=== PATIENT | female | born 1960 | race Caucasian/White ===

== ENCOUNTER 2019-07-16 14:09 | Emergency (ER) | payer OTHER, SELFPAY ==
[2019-07-16 14:32] VITALS: BP 161/91; PULSE 92; RESP 18; TEMP 37.3; O2SAT 98
--- NOTE | 2019-07-16 14:50 | ED.EYEPROB ---
HPI - Eye Problem General Chief complaint: Eye Problems Stated complaint: left eye Time Seen by Provider: 07/16/19 14:50 Source: patient and RN notes reviewed History of Present Illness HPI Narrative: Patient is a 59-year-old female presents the urgent care with complaints of left eye swelling and itchiness. Patient states that it started last night and she thought that she may have itched it or may be a nap got on her eyelid. Patient states she also cleaned fish yesterday but denies any known trauma or injury during that time. Denies any acute vision change. Denies of any nausea, vomiting, fever. States that she is use warm compress, moisture drops and ice to the eye. No other acute complaints. No acute distress noted. Patient read the plan of care. Related Data Allergies Allergy/AdvReac Type Severity Reaction Status Date / Time Penicillins Allergy Severe Rash Unverified 07/16/19 14:33 Sulfa (Sulfonamide Allergy Unknown Rash Verified 07/16/19 14:33 Antibiotics) Review of Systems Review of Systems: Narrative: CONSTITUTIONAL: Denies fever, chills, or sweats. EYES: Reports of left eye swelling and itchiness ENT: Denies rhinorrhea, congestion, sore throat, or otalgia. CARDIOVASCULAR: Denies chest pain, palpitations, or edema. RESPIRATORY: Denies cough or dyspnea. GASTROINTESTINAL: Denies abdominal pain, nausea, vomiting, or diarrhea. GENITOURINARY: Denies dysuria or hematuria. SKIN: Denies rash or itching. MUSCULOSKELETAL: Denies back pain, joint pain, or myalgia. NEUROLOGIC: Denies headache, numbness, or weakness. All other systems reviewed are negative, except as documented in HPI. PMFSH Comments At the time of my signature, I reviewed and agree with the nursing past medical, surgical, social, and family history. There is no relevant family history pertinent to the patient complaint. Exam Narrative: Exam Narrative: GENERAL: This is a well-nourished, well-developed patient, in no apparent distress. HEAD: normocephalic, atraumatic. EYES: PERRL. Sclera clear/white. Vision is grossly intact. Mild to moderate erythemic edema to the left upper eyelid with notable irritation and mild injected left conjunctivea without any notable trauma or injury EARS: External ears normal NOSE: External nose normal with no obvious nasal discharge THROAT: Mucous membranes moist NECK: Neck supple, non-tender without lymphadenopathy, masses or thyromegaly. SKIN: warm, intact with no suspicious lesions or rash, good texture and turgor. NEURO: awake, alert, and oriented to person, place and time. There were no obvious focal neurologic abnormalities. EXTREMITIES: No clubbing, cyanosis, or edema. Course Vital Signs Vital signs: Vital Signs Temperature 99.2 F 07/16/19 14:32 Pulse Rate 92 07/16/19 14:32 Respiratory Rate 18 07/16/19 14:32 Blood Pressure 161/91 H 07/16/19 14:32 Pulse Oximetry 98 07/16/19 14:32 Temperature 99.2 F 07/16/19 14:32 Pulse Rate 92 07/16/19 14:32 Respiratory Rate 18 07/16/19 14:32 Blood Pressure 161/91 H 07/16/19 14:32 Pulse Oximetry 98 07/16/19 14:32 Reviewed?patient is informed that they may have pre-hypertension or hypertension based on a blood pressure reading in the department. I recommend the patient call the primary care provider listed on their discharge instructions or a physician of their choice this week to arrange follow-up for further evaluation of possible pre-hypertension or hypertension. MDM - Eye Problem MDM Narrative Medical decision making narrative: Advised the patient to complete oral antibiotic regimen as prescribed. Complete steroid regimen as prescribed. Make sure to eat and drink with the medications. May use a cool wash rag to the left eye as needed for comfort. Antibiotics and steroids are used to treat the periorbital cellulitis as well as swelling. Make sure to complete them in their entirety. If you develop any increase in redness, swelling, blurry vision,
== END 2019-07-16 15:01 | disposition home or self-care (01) ==
PROVIDERS: Emergency Provider Nurse Practitioner Family
DX: L03.213 Periorbital cellulitis (principal); R03.0 Elevated blood-pressure reading, without diagnosis of hypertension
CPT/HCPCS: 99213; G0463

== ENCOUNTER 2020-11-28 12:24 | Emergency (ER) | payer OTHER, SELFPAY ==
[2020-11-28 12:35] VITALS: BP 153/86; PULSE 88; RESP 20; TEMP 37.2; O2SAT 96
--- NOTE | 2020-11-28 13:03 | ED.URI ---
HPI - URI/Sore Throat General Chief Complaint: Upper Respiratory Infection Stated Complaint: sinus pressure Time Seen by Provider: 11/28/20 13:04 Source: patient and RN notes reviewed Mode of arrival: ambulatory Limitations: no limitations History of Present Illness HPI Narrative: 60-year-old female with history of hypertension presents with concern for 10-day history of sinus pressure, pain, facial pain, postnasal drainage, cough, ear pressure. Reports prior to that she had sore throat which since resolved. She denies shortness of breath, fever, bodies, chills, sweats. Reports trying multiple [id number] remedies without success. MD elicited complaint: nasal congestion Related Data Allergies Allergy/AdvReac Type Severity Reaction Status Date / Time Penicillins Allergy Severe Rash Verified 11/28/20 12:50 Sulfa (Sulfonamide Allergy Unknown Rash Verified 11/28/20 12:50 Antibiotics) Review of Systems Review of Systems: CONSTITUTIONAL: Reports malaise. Denies chills, sweats, or fever. EYES: Denies visual changes, redness, or discharge. ENT: Reports rhinorrhea, congestion, sinus pain, otalgia. Denies sore throat. CARDIOVASCULAR: Denies chest pain, palpitations, or edema. RESPIRATORY: Reports cough. Denies dyspnea. GASTROINTESTINAL: Denies abdominal pain, nausea, vomiting, diarrhea SKIN: Denies rash or itching. MUSCULOSKELETAL: Denies myalgia. NEUROLOGIC: Reports headache. All systems reviewed & are unremarkable except as noted in HPI and below PMFSH Comments At time of signature, agree with nursing past medical, surgical, social and family history. There is no relevant family history pertinent to the presenting complaint Exam Narrative: GENERAL: Well-appearing, well-nourished, and in no acute distress. HEAD: Normocephalic EYES: PERRLA, conjunctivae clear ENT: Nares clear, turbinates edematous and erythematous, sinus tenderness. Mucous membranes moist. TM pearly lucero with dull light reflex bilaterally; no tragal tenderness. Oropharynx not erythematous without lesions. Tonsils not enlarged and without exudate, no drooling, no hoarseness, no trismus, uvula midline. NECK: Supple. No lymphadenopathy CHEST: Clear to auscultation, breath sounds equal. No wheezing, rhonchi, rales, or stridor. No respiratory distress, speaks in full sentences. Cough noted HEART: Regular rate and rhythm. No murmur heard. SKIN: Warm, dry, no rash. NEURO: Alert and oriented x3. PSYCH: Normal mood and affect Course Course Emergency Course: Patient is aware of diagnosis, understands and agrees to treatment plan. Anticipatory guidance given. Patient agrees to follow-up as directed and is aware of reasons to seek care at the emergency department. Portions of this record may have been created with voice recognition software Vital Signs Vital signs: Vital Signs Temperature 98.9 F 11/28/20 12:35 Pulse Rate 88 11/28/20 12:35 Respiratory Rate 20 11/28/20 12:35 Blood Pressure 153/86 H 11/28/20 12:35 Pulse Oximetry 96 11/28/20 12:35 Temperature 98.9 F 11/28/20 12:35 Pulse Rate 88 11/28/20 12:35 Respiratory Rate 20 11/28/20 12:35 Blood Pressure 153/86 H 11/28/20 12:35 Pulse Oximetry 96 11/28/20 12:35 Reviewed. MDM - URI/Sore Throat MDM Narrative Medical decision making narrative: Differential diagnosis considered: Pinedo virus, strep pharyngitis, allergic rhinitis, upper respiratory tract infection, sinusitis, rhinosinusitis, nasopharyngitis. viral pharyngitis, otitis media, otitis externa, pneumonia, bronchitis, viral cough syndrome, viral syndrome, and influenza. Exam findings show no acute concerns or changes; patient is non-toxic appearing and is in no distress. Patient is appropriate for outpatient treatment and follow-up. Critical Care Time Critical Care Time Critical Care Time: No Discharge Plan Discharge Clinical Impression: Sinobronchitis Patient Disposition: Home, Self-Care Condition: Stable I
== END 2020-11-28 13:15 | disposition home or self-care (01) ==
PROVIDERS: Emergency Provider Nurse Practitioner
DX: J40 Bronchitis, not specified as acute or chronic (principal); I10 Essential (primary) hypertension
CPT/HCPCS: 99213; G0463

== ENCOUNTER 2022-10-06 16:09 | Emergency (ER) | payer OTHER, SELFPAY ==
[2022-10-06 16:18] VITALS: BP 142/73; PULSE 97; RESP 20; TEMP 36.8; O2SAT 98
--- NOTE | 2022-10-06 16:25 | ED.FEMALEGU ---
HPI - Female Genitourinary General Chief complaint: Urogenital-Female Stated complaint: Uti symptoms History of Present Illness HPI Narrative: PATIENT PRESENTS WITH URINARY FREQUENCY AND BURNING WITH URINATION NO FLANK PAIN NO GROSS HEMATURIA AND NO ABDOMINAL PAIN . NO CONCERN FOR STI Related Data Home Medications Medication Instructions Recorded Confirmed amlodipine 2.5 mg tablet mg 10/06/22 olmesartan 40 mg tablet mg 10/06/22 Allergies Allergy/AdvReac Type Severity Reaction Status Date / Time Penicillins Allergy Severe Rash Verified 11/28/20 12:50 Sulfa (Sulfonamide Allergy Unknown Rash Verified 11/28/20 12:50 Antibiotics) Review of Systems Review of Systems: CONSTITUTIONAL: DENIES FEVER, CHILLS, OR SWEATS. EYES: DENIES VISUAL CHANGES, REDNESS, OR DISCHARGE. ENT: DENIES RHINORRHEA, CONGESTION, SORE THROAT, OR OTALGIA. CARDIOVASCULAR: DENIES CHEST PAIN, PALPITATIONS, OR EDEMA. RESPIRATORY: DENIES COUGH OR DYSPNEA. GASTROINTESTINAL: DENIES ABDOMINAL PAIN, NAUSEA, VOMITING, OR DIARRHEA. GENITOURINARY: DENIES DYSURIA OR HEMATURIA. SKIN: DENIES RASH OR ITCHING. MUSCULOSKELETAL: DENIES BACK PAIN, JOINT PAIN, OR MYALGIA. NEUROLOGIC: DENIES HEADACHE, NUMBNESS, OR WEAKNESS. PSYCHIATRIC: DENIES ANXIETY OR DEPRESSION. PMFSH Comments AT TIME OF SIGNATURE, AGREE WITH NURSING PAST MEDICAL, SURGICAL, SOCIAL AND FAMILY HISTORY. THERE IS NO RELEVANT FAMILY HISTORY PERTINENT TO THE PRESENTING COMPLAINT Exam Narrative: GENERAL: WELL-APPEARING, WELL-NOURISHED, AND IN NO ACUTE DISTRESS. HEAD: NORMOCEPHALIC, ATRAUMATIC. EYES: PERRLA AND EOMI. ENT: NARES CLEAR, NO RHINORRHEA OR EPISTAXIS. MUCOUS MEMBRANES MOIST. NECK: SUPPLE. CHEST: CLEAR TO AUSCULTATION. NO RESPIRATORY DISTRESS. HEART: REGULAR RATE AND RHYTHM. NO MURMUR HEARD. NORMAL PERIPHERAL PULSES. ABDOMEN: SOFT, NONTENDER, NONDISTENDED, NORMAL ACTIVE BOWEL SOUNDS. EXTREMITIES: NORMAL RANGE OF MOTION. NO EDEMA. SKIN: WARM, DRY, NO RASH. NEURO: NO FOCAL DEFICITS. ALERT AND ORIENTED X3. SVEN COMA SCALE EYE OPENING: SPONTANEOUS 4 SVEN COMA SCALE MOTOR: OBEYS COMMANDS 6 SVEN COMA SCALE VERBAL: ORIENTED 5 SVEN COMA SCALE TOTAL 15 Course Course Level of Care: Express Care Visit Discharge Plan Discharge Clinical Impression: Urinary tract infection, Dysuria Patient Disposition: Home, Self-Care Condition: Stable Instructions: Antibiotic Form Additional Instructions: INCREASE FLUIDS ESPECIALLY CRANBERRY JUICE AND WATER AVOID CAFFEINE AND CARBONATED BEVERAGES ANTIBIOTIC DIRECTED MEDICINE DIRECTED--CAUTIONED IT WILL CAUSE YOUR URINE TO BE BRIGHT ORANGE TYLENOL/IBUPROFEN FOR PAIN OR FEVER FOLLOW-UP WITH HER PRIMARY CARE PROVIDER IF FURTHER PROBLEMS OR CONCERNS RECHECK IF YOU HAVE FEVER OVER 101, NAUSEA AND VOMITING -IF YOU HAVE ANY WORSENING OF SYMPTOMS OR ANY OTHER CONCERNS PLEASE GO TO THE ED IMMEDIATELY. Prescriptions: New nitrofurantoin monohyd/m-cryst [Macrobid] 100 mg capsule 100 mg PO Q12H 5 Days Qty: 10 0RF Rx Instructions: must administer with a meal/food phenazopyridine [Pyridium] 200 mg tablet 200 mg PO TID 0 Days Qty: 6 0RF No Action amlodipine 2.5 mg tablet olmesartan 40 mg tablet Follow-up/Referrals: UNKNOWN,DOCTOR [Primary Care Provider] -
== END 2022-10-06 16:47 | disposition home or self-care (01) ==
PROVIDERS: Emergency Provider Nurse Practitioner Family
DX: N39.0 Urinary tract infection, site not specified (principal); I10 Essential (primary) hypertension
CPT/HCPCS: 81003; 87077; 87086; 87186; 99213; G0463